=== PATIENT | female | born 2000 | race Caucasian/White ===

== ENCOUNTER 2018-04-27 18:48 | Emergency (ER) | payer MEDICAID ==
[~2018-04-27] VITALS: Ht 170.2 cm; Wt 59.1 kg
[2018-04-27 20:33] VITALS: BP 133/86
== END 2018-04-27 20:39 | disposition home or self-care (01) ==
LOC: ER 18:48
DX: S62.306A Unspecified fracture of fifth metacarpal bone, right hand, initial encounter for closed fracture (principal); W22.8XXA Striking against or struck by other objects, initial encounter; Y93.89 Activity, other specified; Y92.89 Other specified places as the place of occurrence of the external cause; Y99.8 Other external cause status
CPT/HCPCS: 29125; 73130; 99284

== ENCOUNTER 2018-04-30 20:11 | Emergency (ER) | payer MEDICAID ==
[~2018-04-30] VITALS: Ht 170.2 cm; Wt 47.0 kg
[2018-04-30 20:12] VITALS: BP 118/68
== END 2018-04-30 21:25 | disposition home or self-care (01) ==
LOC: ER 20:11
DX: S62.306D Unspecified fracture of fifth metacarpal bone, right hand, subsequent encounter for fracture with routine healing (principal); F12.10 Cannabis abuse, uncomplicated; X58.XXXD Exposure to other specified factors, subsequent encounter
CPT/HCPCS: 29125; 99283; A6449

== ENCOUNTER 2018-05-19 09:46 | Outpatient (CLI) | payer MEDICAID ==
[2018-05-19 09:49] VITALS: BP 137/82
== END 2018-05-19 10:19 | disposition home or self-care (01) ==
LOC: ORTHO 09:46
PROVIDERS: ATTEND Nurse Practitioner Family
DX: S62.326D Displaced fracture of shaft of fifth metacarpal bone, right hand, subsequent encounter for fracture with routine healing (principal); F12.90 Cannabis use, unspecified, uncomplicated; F32.9 Major depressive disorder, single episode, unspecified; F17.200 Nicotine dependence, unspecified, uncomplicated; X58.XXXD Exposure to other specified factors, subsequent encounter
CPT/HCPCS: 73130; 99213